=== PATIENT | female | born 1950 | race Caucasian/White ===

== ENCOUNTER 2016-12-20 12:31 | Day surgery (SDC) | payer BC ==
[2016-12-12 14:22] LABS: HEMATOCRIT 38.1 % (36.0-48.0); HEMOGLOBIN 12.8 g/dL (12.0-16.0)
[~2016-12-20 12:31] MED LIST: AFRIN15 NAS; ALBUTEROL5 INH; ALEVE220 MG PO; AMB10 PO; AMPHETAMINE15 M1 PO; ARMOUR THYRO60 MG PO; ATV1 PO; B121000P IM; BIOTIN FORTE5 MG OR; CARASPUDL PO; CEFT2 PO; CYTOTEC100 MCG PO; EZFE 200200 MG PO; FISH-EPA1000 MG PO; FOLIC PO; LEVOTHYROXIN50 MCG PO; LIOR10 PO; LIPITOR20 PO; METANX PO; MOBIC15 MG PO; NEUPRO 6MG6 MG/24 HR TOP; NEUR300 PO; NEUR600 PO; NEUR800 PO; NORCO1 TA1 PO; PCET PO; PRILOSEC40 MG PO; PROAIR HFA INH; PROZAC PO; PROZAC40 MG PO; REQUIP2 PO; REQUIP3 PO; SEROQUEL25 PO; SIN25 PO; SLOWMAG PO; SPIRIVA INH; SPIRIVA RESPIMAT INH; STERAPRED5 MG; SUCR PO; SYMBICORT 160/41 INH INH; SYN1 PO; SYN112 PO; TRAZ100 PO; VITD PO; VOLT50 PO; VOLTAREN1 % TOP; ZOCOR20 PO
[2016-12-20] MEDS ORDERED: NEUR300 PO (13:44)
[2016-12-24] MEDS ORDERED: NEUPRO 6MG6 MG/24 HR TOP (20:41)
[2016-12-24] MEDS ORDERED: NEUR300 PO ×2 (20:42→20:44)
[2016-12-24] MEDS ORDERED: SYN075 PO (20:47)
[2016-12-24] MEDS ORDERED: ATV1 PO ×2 (20:49→20:51)
[2016-12-24] MEDS ORDERED: PROZAC40 MG PO (20:51)
[2016-12-24] MEDS ORDERED: ALBUTEROL0.083 % INH (20:53)
[2016-12-24] MEDS ORDERED: PROAIR HFA INH (20:54)
[2016-12-24] MEDS ORDERED: SPIRIVA RESPIMAT INH (20:55)
[2016-12-24] MEDS ORDERED: VITD PO (20:56)
[2016-12-24] MEDS ORDERED: TRAZ100 PO (20:57)
[2016-12-24] MEDS ORDERED: LIPITOR20 PO (20:57)
[2016-12-24] MEDS ORDERED: FORTEO SC (20:58)
[2016-12-24] MEDS ORDERED: DUEXIS 800-26.1 EACH PO (20:59)
[2016-12-24] MEDS ORDERED: SYMBICORT 160/41 INH INH (21:16)
[2016-12-27] MEDS ORDERED: NEUR300 PO (19:53)
[2016-12-27] MEDS ORDERED: ATV.5 (19:57)
[2016-12-27] MEDS ORDERED: PEP20 PO (19:58)
[2017-04-01] MEDS ORDERED: IBU800 PO (12:40)
[2017-04-01] MEDS ORDERED: MIRAPEX250 PO (12:47)
== END 2016-12-20 18:13 | disposition home or self-care (01) ==
LOC: IMGHOLD 12:31 → RADHOLD 12:57 → SDC/OF 14:35
PROVIDERS: Psychiatry & Neurology Neurology
DX: G47.33 Obstructive sleep apnea (adult) (pediatric) (principal); G25.81 Restless legs syndrome; G25.5 Other chorea; I67.82 Cerebral ischemia; K21.9 Gastro-esophageal reflux disease without esophagitis; I34.1 Nonrheumatic mitral (valve) prolapse; J44.9 Chronic obstructive pulmonary disease, unspecified; R53.1 Weakness; R27.0 Ataxia, unspecified; Z99.89 Dependence on other enabling machines and devices; Z98.41 Cataract extraction status, right eye; Z98.42 Cataract extraction status, left eye; Z90.49 Acquired absence of other specified parts of digestive tract; Z98.1 Arthrodesis status; Z90.710 Acquired absence of both cervix and uterus; Z96.652 Presence of left artificial knee joint; Z98.890 Other specified postprocedural states
CPT/HCPCS: 70553; 85014; 85018; 93005; A9270-GY; J2710